=== PATIENT | female | born 1935 | race Caucasian/White ===

== ENCOUNTER 2020-07-17 10:54 | Inpatient (IN) ==
[2020-07-17] MEDS ORDERED: Insulin DETEMIR 100 UNIT/ML per UNIT SUBQ ONE (21:00)
[2020-07-17] MEDS ORDERED: *HR* Dextrose 50 % in Water (Vial) 50 ML VIAL IVP PRN (22:47)
[2020-07-17] MEDS ORDERED: Dextrose Gel 15 GM/37.5 ML TUBE PO PRN ×2 (22:47)
[2020-07-17] MEDS ORDERED: D5% in Water 1,000 ML IVC PRN (22:47)
[2020-07-17] MEDS: Pregabalin 75 MG CAPSULE PO SCH (23:48)
[2020-07-17] MEDS: rOPINIRole 0.25 MG TABLET PO SCH (23:49)
[2020-07-18] MEDS ORDERED: *HR* Dextrose 50 % in Water (Vial) 50 ML VIAL IVP PRN (00:08)
[2020-07-18] MEDS ORDERED: Dextrose Gel 15 GM/37.5 ML TUBE PO PRN ×2 (00:08)
[2020-07-18] MEDS ORDERED: D5% in Water 1,000 ML IVC PRN (00:08)
[2020-07-18] MEDS: *HR* Enoxaparin 40 MG/0.4 ML SYRINGE SQ SCH (05:09)
[2020-07-18] MEDS: lisinopriL 20 MG TABLET PO SCH (08:11)
[2020-07-18] MEDS: Furosemide 40 MG TABLET PO SCH (08:11)
[2020-07-18] MEDS: Anastrozole 1 MG TABLET PO SCH (08:11)
[2020-07-18] MEDS: Cholecalciferol (D-3) 1,000 UNIT (25MCG) TABLET PO SCH (08:11)
[2020-07-18] MEDS: Insulin LISPRO 300 UNITS/3 ML VIAL SUBQ SCH ×4 (08:12→20:03)
[2020-07-18] MEDS: D3 PO SCH (08:12)
[2020-07-18] MEDS: GLUCOSAMINE PO SCH (08:12)
[2020-07-18] MEDS: BOSWELLIA SERRA PO SCH (08:12)
[2020-07-18] MEDS: Insulin DETEMIR 100 UNIT/ML X5UNITS SUBQ SCH ×2 (08:27→20:04)
[2020-07-18] MEDS ORDERED: Acetaminophen 325 MG TABLET PO PRN (19:32)
[2020-07-18] MEDS: Pregabalin 75 MG CAPSULE PO SCH (20:02)
[2020-07-18] MEDS: rOPINIRole 0.25 MG TABLET PO SCH (20:03)
[2020-07-19] MEDS: *HR* Enoxaparin 40 MG/0.4 ML SYRINGE SQ SCH (04:51)
[2020-07-19 06:19] LABS: Basophils % 0.4 %; Eosinophils # 0.3 K/mcL (0.0-0.6); Eosinophils % 5.1 %; Hematocrit 31.3 % (35.3-44.9); Hemoglobin 10.3 g/dL (11.5-15.4); Immature Granulocytes % 0.6 % (0-4); Lymphocytes # 1.6 K/mcL (0.6-4.6); Lymphocytes % 33.1 %; Mean Corpuscular HGB Conc 32.9 g/dL (31.6-35.5); Mean Corpuscular Hemoglobin 29.1 pg (28.0-33.3); Mean Corpuscular Volume 88.4 fL (83.0-100.0); Mean Platelet Volume 11.7 fL (9.4-12.4); Monocytes # 0.4 K/mcL (0.0-1.3); Monocytes % 8.4 %; Neutrophils # 2.6 K/mcL (1.6-8.9); Platelet Count 176 K/mcL (140-400); Red Blood Count 3.54 M/mcL (3.82-4.97); Segmented Neutrophils % 52.4 %; White Blood Count 4.9 K/mcL (4.3-11.1)
[2020-07-19 06:42] LABS: Calcium 8.4 mg/dL (8.6-10.3); Potassium 3.8 mEq/L (3.5-5.1)
[2020-07-19] MEDS: Cholecalciferol (D-3) 1,000 UNIT (25MCG) TABLET PO SCH (08:05)
[2020-07-19] MEDS: lisinopriL 20 MG TABLET PO SCH (08:06)
[2020-07-19] MEDS: Furosemide 40 MG TABLET PO SCH (08:06)
[2020-07-19] MEDS: Anastrozole 1 MG TABLET PO SCH (08:06)
[2020-07-19] MEDS: Insulin LISPRO 300 UNITS/3 ML VIAL SUBQ SCH ×4 (08:07→20:15)
[2020-07-19] MEDS: D3 PO SCH (08:47)
[2020-07-19] MEDS: Insulin DETEMIR 100 UNIT/ML X5UNITS SUBQ SCH (08:47)
[2020-07-19] MEDS: GLUCOSAMINE PO SCH (08:47)
[2020-07-19] MEDS: BOSWELLIA SERRA PO SCH (08:47)
[2020-07-19] MEDS ORDERED: levoFLOXacin 750 MG TABLET PO SCH (09:00)
[2020-07-19] MEDS: rOPINIRole 0.25 MG TABLET PO SCH (20:14)
[2020-07-19] MEDS: Pregabalin 75 MG CAPSULE PO SCH (20:14)
[2020-07-19] MEDS ORDERED: Insulin DETEMIR 100 UNIT/ML per UNIT SUBQ ONE (21:00)
[2020-07-20] MEDS: *HR* Enoxaparin 40 MG/0.4 ML SYRINGE SQ SCH (06:12)
[2020-07-20] MEDS: Cholecalciferol (D-3) 1,000 UNIT (25MCG) TABLET PO SCH (08:15)
[2020-07-20] MEDS: Anastrozole 1 MG TABLET PO SCH (08:16)
[2020-07-20] MEDS: Furosemide 40 MG TABLET PO SCH (08:16)
[2020-07-20] MEDS: lisinopriL 20 MG TABLET PO SCH (08:16)
[2020-07-20] MEDS: Insulin LISPRO 300 UNITS/3 ML VIAL SUBQ SCH ×4 (08:16→20:43)
[2020-07-20] MEDS: Insulin DETEMIR 100 UNIT/ML X5UNITS SUBQ SCH ×2 (08:17→20:43)
[2020-07-20] MEDS: BOSWELLIA SERRA PO SCH (08:17)
[2020-07-20] MEDS: D3 PO SCH (08:17)
[2020-07-20] MEDS: GLUCOSAMINE PO SCH (08:17)
[2020-07-20] MEDS: rOPINIRole 0.25 MG TABLET PO SCH (20:42)
[2020-07-20] MEDS: Pregabalin 75 MG CAPSULE PO SCH (20:42)
[2020-07-21] MEDS: *HR* Enoxaparin 40 MG/0.4 ML SYRINGE SQ SCH (05:43)
[2020-07-21] MEDS: lisinopriL 20 MG TABLET PO SCH (09:43)
[2020-07-21] MEDS: Furosemide 40 MG TABLET PO SCH (09:44)
[2020-07-21] MEDS: Cholecalciferol (D-3) 1,000 UNIT (25MCG) TABLET PO SCH (09:44)
[2020-07-21] MEDS: Anastrozole 1 MG TABLET PO SCH (09:44)
[2020-07-21] MEDS: Insulin LISPRO 300 UNITS/3 ML VIAL SUBQ SCH ×4 (09:45→20:35)
[2020-07-21] MEDS: BOSWELLIA SERRA PO SCH (09:52)
[2020-07-21] MEDS: GLUCOSAMINE PO SCH (09:52)
[2020-07-21] MEDS: D3 PO SCH (09:52)
[2020-07-21] MEDS: Insulin DETEMIR 100 UNIT/ML X5UNITS SUBQ SCH (09:57)
[2020-07-21] MEDS: rOPINIRole 0.25 MG TABLET PO SCH (20:34)
[2020-07-21] MEDS: Pregabalin 75 MG CAPSULE PO SCH (20:34)
[2020-07-21] MEDS ORDERED: Insulin DETEMIR 100 UNIT/ML per UNIT SUBQ ONE (21:00)
[2020-07-22] MEDS: *HR* Enoxaparin 40 MG/0.4 ML SYRINGE SQ SCH (05:41)
[2020-07-22 06:48] LABS: Hematocrit 32.1 % (35.3-44.9); Hemoglobin 10.3 g/dL (11.5-15.4); Mean Corpuscular HGB Conc 32.1 g/dL (31.6-35.5); Mean Corpuscular Hemoglobin 28.8 pg (28.0-33.3); Mean Corpuscular Volume 89.7 fL (83.0-100.0); Mean Platelet Volume 11.5 fL (9.4-12.4); Platelet Count 227 K/mcL (140-400); Red Blood Count 3.58 M/mcL (3.82-4.97); Red Cell Distribution Width 15.7 % (11.5-14.5)
[2020-07-22 07:07] LABS: Calcium 8.7 mg/dL (8.6-10.3); Potassium 4.1 mEq/L (3.5-5.1)
[2020-07-22] MEDS: Furosemide 40 MG TABLET PO SCH (08:34)
[2020-07-22] MEDS: Anastrozole 1 MG TABLET PO SCH (08:34)
[2020-07-22] MEDS: lisinopriL 20 MG TABLET PO SCH (08:34)
[2020-07-22] MEDS: Insulin LISPRO 300 UNITS/3 ML VIAL SUBQ SCH ×4 (08:35→20:21)
[2020-07-22] MEDS: Cholecalciferol (D-3) 1,000 UNIT (25MCG) TABLET PO SCH (08:35)
[2020-07-22] MEDS: BOSWELLIA SERRA PO SCH (08:41)
[2020-07-22] MEDS: D3 PO SCH (08:41)
[2020-07-22] MEDS: GLUCOSAMINE PO SCH (08:41)
[2020-07-22] MEDS ORDERED: Insulin DETEMIR 100 UNIT/ML X5UNITS SUBQ SCH (09:00)
[2020-07-22] MEDS: rOPINIRole 0.25 MG TABLET PO SCH (20:14)
[2020-07-22] MEDS: Pregabalin 75 MG CAPSULE PO SCH (20:15)
[2020-07-22] MEDS: Insulin DETEMIR 100 UNIT/ML X5UNITS SUBQ SCH (20:21)
[2020-07-23] MEDS: *HR* Enoxaparin 40 MG/0.4 ML SYRINGE SQ SCH (05:41)
[2020-07-23] MEDS: Furosemide 40 MG TABLET PO SCH (08:12)
[2020-07-23] MEDS: Insulin LISPRO 300 UNITS/3 ML VIAL SUBQ SCH ×4 (08:12→20:28)
[2020-07-23] MEDS: D3 PO SCH (08:12)
[2020-07-23] MEDS: GLUCOSAMINE PO SCH (08:12)
[2020-07-23] MEDS: Insulin DETEMIR 100 UNIT/ML X5UNITS SUBQ SCH ×2 (08:12→20:27)
[2020-07-23] MEDS: lisinopriL 20 MG TABLET PO SCH (08:12)
[2020-07-23] MEDS: Cholecalciferol (D-3) 1,000 UNIT (25MCG) TABLET PO SCH (08:12)
[2020-07-23] MEDS: Anastrozole 1 MG TABLET PO SCH (08:12)
[2020-07-23] MEDS: BOSWELLIA SERRA PO SCH (08:12)
[2020-07-23] MEDS: Pregabalin 75 MG CAPSULE PO SCH (20:28)
[2020-07-23] MEDS: rOPINIRole 0.25 MG TABLET PO SCH (20:28)
[2020-07-24] MEDS: *HR* Enoxaparin 40 MG/0.4 ML SYRINGE SQ SCH (05:51)
[2020-07-24] MEDS: D3 PO SCH (07:39)
[2020-07-24] MEDS: BOSWELLIA SERRA PO SCH (07:39)
[2020-07-24] MEDS: GLUCOSAMINE PO SCH (07:39)
[2020-07-24] MEDS: Insulin LISPRO 300 UNITS/3 ML VIAL SUBQ SCH ×4 (07:45→19:47)
[2020-07-24] MEDS: Cholecalciferol (D-3) 1,000 UNIT (25MCG) TABLET PO SCH (07:46)
[2020-07-24] MEDS: Anastrozole 1 MG TABLET PO SCH (07:46)
[2020-07-24] MEDS: lisinopriL 20 MG TABLET PO SCH (07:46)
[2020-07-24] MEDS: Furosemide 40 MG TABLET PO SCH (07:46)
[2020-07-24] MEDS: Insulin DETEMIR 100 UNIT/ML X5UNITS SUBQ SCH ×2 (08:02→19:47)
[2020-07-24] MEDS: rOPINIRole 0.25 MG TABLET PO SCH (19:46)
[2020-07-24] MEDS: Pregabalin 75 MG CAPSULE PO SCH (19:46)
[2020-07-25] MEDS: *HR* Enoxaparin 40 MG/0.4 ML SYRINGE SQ SCH (05:48)
[2020-07-25] MEDS: Anastrozole 1 MG TABLET PO SCH (08:04)
[2020-07-25] MEDS: Cholecalciferol (D-3) 1,000 UNIT (25MCG) TABLET PO SCH (08:04)
[2020-07-25] MEDS: lisinopriL 20 MG TABLET PO SCH (08:05)
[2020-07-25] MEDS: Furosemide 40 MG TABLET PO SCH (08:06)
[2020-07-25] MEDS: Insulin LISPRO 300 UNITS/3 ML VIAL SUBQ SCH ×4 (08:12→20:55)
[2020-07-25] MEDS: Insulin DETEMIR 100 UNIT/ML X5UNITS SUBQ SCH ×2 (08:34→21:35)
[2020-07-25] MEDS: GLUCOSAMINE PO SCH (09:18)
[2020-07-25] MEDS: BOSWELLIA SERRA PO SCH (09:18)
[2020-07-25] MEDS: D3 PO SCH (09:18)
[2020-07-25] MEDS: Pregabalin 75 MG CAPSULE PO SCH (21:32)
[2020-07-25] MEDS: rOPINIRole 0.25 MG TABLET PO SCH (21:34)
[2020-07-26] MEDS: *HR* Enoxaparin 40 MG/0.4 ML SYRINGE SQ SCH (05:34)
[2020-07-26 07:39] VITALS: BP 118/51
[2020-07-26] MEDS: Insulin LISPRO 300 UNITS/3 ML VIAL SUBQ SCH (08:15)
[2020-07-26] MEDS: Cholecalciferol (D-3) 1,000 UNIT (25MCG) TABLET PO SCH (08:18)
[2020-07-26] MEDS: Insulin DETEMIR 100 UNIT/ML X5UNITS SUBQ SCH (08:18)
[2020-07-26] MEDS: Anastrozole 1 MG TABLET PO SCH (08:18)
[2020-07-26] MEDS: Furosemide 40 MG TABLET PO SCH (08:18)
[2020-07-26] MEDS: lisinopriL 20 MG TABLET PO SCH (08:18)
[2020-07-26] MEDS: BOSWELLIA SERRA PO SCH (08:19)
[2020-07-26] MEDS: GLUCOSAMINE PO SCH (08:19)
[2020-07-26] MEDS: D3 PO SCH (08:19)
== END 2020-07-26 11:30 | disposition home health service (06) | DRG 945 ==
LOC: INPGRE 17:54
PROVIDERS: ADMIT Family Medicine; ATTEND Family Medicine

== ENCOUNTER 2022-03-19 04:17 | Observation (INO) ==
[2022-03-19] MEDS ORDERED: Prochlorperazine 10 MG/2 ML VIAL IVP STA (04:44)
[2022-03-19 04:59] LABS: Basophils # 0.1 K/mcL (0.0-0.2); Basophils % 0.8 %; Eosinophils # 0.2 K/mcL (0.0-0.6); Eosinophils % 2.6 %; Hematocrit 26.5 % (35.3-44.9); Hemoglobin 8.8 g/dL (11.5-15.4); Immature Granulocytes % 4.1 % (0-4); Lymphocytes # 3.1 K/mcL (0.6-4.6); Lymphocytes % 38.5 %; Mean Corpuscular HGB Conc 33.2 g/dL (31.6-35.5); Mean Corpuscular Hemoglobin 29.5 pg (28.0-33.3); Mean Corpuscular Volume 88.9 fL (83.0-100.0); Mean Platelet Volume 12.9 fL (9.4-12.4); Monocytes # 0.8 K/mcL (0.0-1.3); Neutrophils # 3.5 K/mcL (1.6-8.9); Nucleated Red Blood Cells 0.8 /100 WBC (0); Red Blood Count 2.98 M/mcL (3.82-4.97); Red Cell Distribution Width 14.9 % (11.5-14.5)
[2022-03-19 05:03] LABS: Bilirubin,Urine Negative (Negative); Blood,Urine Trace-intact (Negative); Clarity,Urine Slightly Cloudy (Clear); Glucose,Urine (UA) Normal (Normal); Ketones,Urine Negative (Negative); Leukocyte Esterase,Urine Small (Negative); Nitrite,Urine Positive (Negative); Platelet Count 79 K/mcL (140-400); Protein,Urine Negative (Neg-Trace); Urobilinogen,Urine Normal (Normal)
[2022-03-19 05:05] LABS: Color,Urine Light Yellow (Yellow); Platelet Estimate Decreased (Normal)
[2022-03-19 05:10] LABS: Bacteria,Urine Few per hpf (None-Few); RBC,Urine 0-3 per hpf (0-3); Squamous Epithelial Cell,Urine Few per hpf (None-Few)
[2022-03-19 05:16] LABS: Albumin 3.9 g/dL (3.5-5.7); Albumin/Globulin Ratio 1.5 (1.1-2.2); Bilirubin,Total 0.7 mg/dL (0.3-1.0); Calcium 8.6 mg/dL (8.6-10.3); Globulin 2.6 g/dL (2.4-3.5); Total Protein 6.5 g/dL (6.4-8.9)
[2022-03-19] MEDS: 0.9 % Sodium Chloride 1,000 ML IVC SCH ×3 (05:16→20:20)
[2022-03-19] MEDS ORDERED: cefTRIAXone 1,000 MG in 0.9 % Sodium Chloride Mini Bag 100 ML IVPB ONE (05:56)
[2022-03-19] MEDS ORDERED: Naloxone 0.4 MG/ML INJ IVP PRN (09:06)
[2022-03-19] MEDS ORDERED: Ondansetron 4 MG/2 ML VIAL IVP PRN (09:06)
[2022-03-19] MEDS ORDERED: Acetaminophen 325 MG TABLET PO PRN (09:06)
[2022-03-19] MEDS ORDERED: Acetaminophen 325 MG TABLET PO ONE (20:15)
[2022-03-19] MEDS ORDERED: 0.9 % Sodium Chloride 1,000 ML ONE (20:15)
[2022-03-20] MEDS: 0.9 % Sodium Chloride 1,000 ML IVC SCH (03:32)
[2022-03-20 04:58] LABS: Hematocrit 27.1 % (35.3-44.9); Hemoglobin 8.6 g/dL (11.5-15.4); Mean Corpuscular HGB Conc 31.7 g/dL (31.6-35.5); Mean Corpuscular Hemoglobin 29.6 pg (28.0-33.3); Mean Corpuscular Volume 93.1 fL (83.0-100.0); Mean Platelet Volume 11.7 fL (9.4-12.4); Platelet Count 112 K/mcL (140-400); Red Blood Count 2.91 M/mcL (3.82-4.97); Red Cell Distribution Width 15.4 % (11.5-14.5); White Blood Count 9.2 K/mcL (4.3-11.1)
[2022-03-20 05:13] LABS: Albumin 3.5 g/dL (3.5-5.7); Albumin/Globulin Ratio 1.4 (1.1-2.2); Bilirubin,Total 0.5 mg/dL (0.3-1.0); Calcium 8.1 mg/dL (8.6-10.3); Globulin 2.5 g/dL (2.4-3.5)
[2022-03-20] MEDS ORDERED: *HR* Enoxaparin 40 MG/0.4 ML SYRINGE SQ SCH (06:00)
[2022-03-20] MEDS ORDERED: lisinopriL 20 MG TABLET PO SCH (09:00)
[2022-03-20] MEDS ORDERED: Cyanocobalamin (B-12) 1,000 MCG TABLET PO SCH (09:00)
[2022-03-20] MEDS ORDERED: Anastrozole 1 MG TABLET PO SCH (09:00)
[2022-03-20] MEDS ORDERED: Cholecalciferol (D-3) 1,000 UNIT (25MCG) TABLET PO SCH (09:00)
[2022-03-20 11:12] VITALS: TEMP 98.7
[2022-03-20] MEDS ORDERED: cefTRIAXone 1,000 MG in 0.9 % Sodium Chloride 10 ML IVP SCH (12:00)
[2022-03-20 15:22] VITALS: BP 124/68; PULSE 67; RESP 17; O2SAT 97
== END 2022-03-20 17:40 | disposition home or self-care (01) ==
LOC: INPGRE 04:17 → EMEROOGRE 04:17 → INPGRE 08:39
PROVIDERS: ADMIT Family Medicine; ATTEND Family Medicine